=== PATIENT | male | born 1930 | race Caucasian/White ===

== ENCOUNTER 2018-11-28 21:16 | Inpatient (IN) | payer MEDICARE ==
[~2018-11-28] VITALS: Ht 170.2 cm; Wt 82.1 kg
[2018-11-28 21:40] LABS: BASOPHILS ABSOLUTE AUTO 0.06 K/mm3 (0.00-0.23); BASOPHILS PERCENT AUTO 0 % (0-2); EOSINOPHILS ABSOLUTE AUTO 0.01 K/mm3 (0.00-0.68); EOSINOPHILS PERCENT AUTO 0 % (0-6); Hematocrit 40.4 % (37.0-53.0); Hemoglobin 12.9 g/dL (13.5-17.5); IMMATURE GRAN PERCENT AUTO 1 % (0-1); LYMPHOCYTES ABSOLUTE AUTO 2.18 K/mm3 (0.84-5.20); LYMPHOCYTES PERCENT AUTO 11 % (21-46); MONOCYTES ABSOLUTE AUTO 1.04 K/mm3 (0.16-1.47); MONOCYTES PERCENT AUTO 5 % (4-13); Mean Corpuscular HGB 27.5 pg (26.0-34.0); Mean Corpuscular HGB Conc 31.9 g/dL (31.5-36.5); Mean Corpuscular Volume 86 fL (80-100); Mean Platelet Volume 10.2 fL (9.1-12.4); NEUTROPHILS ABSOLUTE AUTO 16.35 K/mm3 (1.96-9.15); NEUTROPHILS PERCENT AUTO 82 % (41-73); Platelet Count 459 K/mm3 (150-400); RDW Standard Deviation 49.8 fL (35.1-46.3); Red Blood Cell Count 4.69 M/mm3 (4.30-5.90); White Blood Cell Count 19.84 K/mm3 (4.00-11.30)
[2018-11-28 21:53] LABS: Albumin, Blood 2.6 g/dL (3.4-5.0); Albumin/Globulin Ratio 0.4 (0.8-1.8); Bilirubin, Total 1.8 mg/dL (0.1-1.0); Bun/Creatinine Ratio 22.9 (12.0-20.0); Calcium, Blood 9.3 mg/dL (8.5-10.1); Creatinine, Blood 1.57 mg/dL (0.60-1.20); Globulin, Blood 5.9 g/dL (2.2-4.0); Potassium, Blood 4.4 mmol/L (3.5-5.5); Total Protein, Blood 8.5 g/dL (6.4-8.2)
[2018-11-28 21:58] LABS: Source, Urine Catheter
[2018-11-28 22:02] LABS: Appearance, Urine Turbid (Clear); Bilirubin, Urine Neg (Neg); Blood, Urine 3+ (Neg); Color, Urine Amber (P-Yellow); Glucose Qualitative, Urine Neg (Neg); Ketones, Urine 1+ (Neg); Leukocyte Esterase, Urine 3+ (Neg); Nitrite, Urine Pos (Neg); Protein, Urine 4+ (Neg); Specific Gravity, Urine 1.015 (1.003-1.022); Urobilinogen, Urine NORM (Normal)
[2018-11-28 22:09] LABS: Amorphous Mod (0-Heavy); Bacteria Many /hpf; Squamous Epithelial Cells Not Seen /hpf (Few); Triple Phosphate Crystals Mod /hpf; White Blood Cells, Urine TNTC /hpf (0-5)
[2018-11-28 22:37] LABS: Magnesium, Blood 2.4 mg/dL (1.6-2.4); Troponin I <0.015 ng/mL (0.000-0.040)
--- NOTE | 2018-11-29 01:30 | NUR ---
PATIENT ARRIVED ON GURNEY WITH EYES CLOSED. PATIENT OPENED EYES WITH PHYSICAL STIMULI. PATIENT WATCHING AND SMILING AT STAFF WHILE WE CLEANED HIM OF INCONTINENCE. PATIENT NONVERBAL AT THIS TIME. BERTIN AT BEDSIDE WITH DAUGHTERS. STAYING THE NIGHT. 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 PATIENT BUSTAMANTE OOZING PUSS, CLEANED. HEAD OF PENIS RED AND SWOLLEN. PATIENT HAS LARGE AREA OF REDNESS AND RASH AREA THAT EXTENDS FROM BUTTOCK TO LOW BACK, PIC TAKEN IN CHART.
[2018-11-29] MEDS ORDERED: LISI5 PO (01:42)
[2018-11-29] MEDS ORDERED: QUET25 PO (01:43)
[2018-11-29] MEDS ORDERED: MELADOX3 MG PO (01:44)
[2018-11-29] MEDS ORDERED: FISH OIL 1,0001 EACH PO (01:47)
[2018-11-29] MEDS ORDERED: TUMS500 MG PO (01:47)
[2018-11-29] MEDS ORDERED: D3-20002000 UNIT PO (01:47)
[2018-11-29] MEDS ORDERED: SERT100 PO (02:33)
--- NOTE | 2018-11-29 04:11 | NUR ---
VERIFED WITH DR. VANN THAT PATIENT IS DNR/DNI AND WHETHER HE WANTED FLAGYL TO BE GIVEN OR NOT. FLAGYL WAS ORDERED IN ER BUT WAS NOT GIVEN. NO FLAGYL TO BE GIVEN AT THIS TIME.
--- NOTE | 2018-11-29 06:09 | NUR ---
PATIENT CONTINUES TO BE NONVERBAL. STATES THAT HE DOES SAY SOME WORDS SOMETIMES. PATIENT SMILING AND WATCHING STAFF WHEN PROVIDING CARE. TURNING PATIENT EVERY TWO HOURS AND PROVIDING BUSTAMANTE CARE. PATIENT CONTINUES TO OOZES YELLOW PUSS FROM BUSTAMANTE. PATIENT TOLERATING FLUIDS SO FAR, DOES HAVE HISTORY OF CHF ACCORDING TO . PATIENT SHOWS NO SIGNS OF PAIN. SLEEPING WELL INBETWEEN CARE.
[2018-11-29 06:45] LABS: BASOPHILS ABSOLUTE AUTO 0.03 K/mm3 (0.00-0.23); BASOPHILS PERCENT AUTO 0 % (0-2); EOSINOPHILS ABSOLUTE AUTO 0.06 K/mm3 (0.00-0.68); EOSINOPHILS PERCENT AUTO 0 % (0-6); Hematocrit 30.3 % (37.0-53.0); Hemoglobin 9.6 g/dL (13.5-17.5); IMMATURE GRAN ABSOLUTE AUTO 0.11 K/mm3 (0.00-0.10); IMMATURE GRAN PERCENT AUTO 1 % (0-1); LYMPHOCYTES ABSOLUTE AUTO 1.99 K/mm3 (0.84-5.20); LYMPHOCYTES PERCENT AUTO 14 % (21-46); MONOCYTES ABSOLUTE AUTO 0.72 K/mm3 (0.16-1.47); MONOCYTES PERCENT AUTO 5 % (4-13); Mean Corpuscular HGB 27.1 pg (26.0-34.0); Mean Corpuscular HGB Conc 31.7 g/dL (31.5-36.5); Mean Corpuscular Volume 86 fL (80-100); Mean Platelet Volume 9.9 fL (9.1-12.4); NEUTROPHILS ABSOLUTE AUTO 10.94 K/mm3 (1.96-9.15); NEUTROPHILS PERCENT AUTO 79 % (41-73); Platelet Count 304 K/mm3 (150-400); RDW Coefficient Variation 15.9 % (11.7-14.2); RDW Standard Deviation 49.5 fL (35.1-46.3); Red Blood Cell Count 3.54 M/mm3 (4.30-5.90); White Blood Cell Count 13.85 K/mm3 (4.00-11.30)
[2018-11-29 07:18] LABS: Albumin, Blood 1.9 g/dL (3.4-5.0); Albumin/Globulin Ratio 0.4 (0.8-1.8); Bilirubin, Total 1.1 mg/dL (0.1-1.0); Bun/Creatinine Ratio 25.4 (12.0-20.0); Calcium, Blood 7.9 mg/dL (8.5-10.1); Creatinine, Blood 1.26 mg/dL (0.60-1.20); Globulin, Blood 4.6 g/dL (2.2-4.0); Potassium, Blood 3.8 mmol/L (3.5-5.5); Total Protein, Blood 6.5 g/dL (6.4-8.2)
--- NOTE | 2018-11-29 07:40 | NUR ---
DR CLAUDIO AT THE BEDSIDE TO ASSESS PT.
--- NOTE | 2018-11-29 08:00 | NUR ---
AM ASSESSMENT: PT IS DROWSY BUT OPENS EYES TO VERBAL STIMULI. PT IS VERY [place] PER AND IS NOT WEARING ANY HEARING AIDS. PT MUMBLING SINGLE WORDS THAT ARE MOSTLY UNINTELLIGLE. PT'S REPORTS PT HAS BEEN DROWSY AND MOSTLY NON-VERBAL LATELY. PT IS FULLY DEPENDENTLY WITH Q2H TURNS TO MAINTAIN SKIN INTEGRITY. LUNGS ARE CLEAR BUT DIMINISHED IN THE BILATERAL BASES. SP02 >90% ON 1L 02 VIA N/C. HR REGULAR, SR-70'S RANGE. NS @ 200ML/HR THROUGH PIV IN THE LT FA. ABD SOFT/ROUND/NO GRIMACE TO PALPATION. BT'S HYPOACTIVE X4 QAUDS. PT WILL REMAIN NPO UNTIL SPEECH EVALUATION IS DONE. -DNR STATUS
--- NOTE | 2018-11-29 11:35 | NUR ---
DR WONG AT THE BEDSIDE FOR SURGICAL CONSULT. DISCUSSED PT'S STATUS WITH . CONTINUING TO AWAIT ABD ULTRASOUND TO BE COMPLETED. WILL DO MEDICAL MANAGEMENT AND CONTINUE ABX PER DR WONG FOR NOW.
--- NOTE | 2018-11-29 16:19 | NUR ---
SHIFT SUMMARY: PT WITH INCREASING MENTATION T/O SHIFT. PT STARTING TO SAYING SINGLE WORDS MORE FREQUENTLY AND WORDS ARE CLEARER/INTELLIGLE. PT ABLE TO MAKE SOME NEEDS KNOWN, HOWEVER, R/T DEMENTIA FAMILY REPORTS HAS DIFFICULTY MAKING ALL CARE NEEDS KNOWN. PT VERY [place] AND DOES NOT APPEAR TO HEAR MOST OF WHAT STAFF SAYS. LUNGS WITH INCREASING COARSENESS HEARD IN THE BILATERAL BASES. SP02- >90% ON 1L 02 VIA N/C. HR REGULAR, SR-70'S RANGE. PT IS MEDICAL STATUS AND WILL TNX WHEN A BED IS AVAILABLE. NEW IV PLACED IN THE RT FA, AFTER PT PULLED OUT HIS FIRST IV. PT ON LEVOQUIN/ZOSYN CONTINUED WHILE URINE CX'S PENDING. PT'S , REPORTS THIS IS THE 3RD UTI SINCE HE HAS HAD HIS CHRONIC INDWELLING BUSTAMANTE PLACED. TURNING Q2H TO MAINTAIN SKIN INTEGRITY. [place]STATIN ORDERED FOR ERYTHEMATOUS RASH PRESENT TO THE RT/LT BUTTOCKS. PT HAS BEEN WHEELCHAIR/BEDRIDDEN SINCE 03/24 PER AND PT'S REPORTS SHE FEELS STRONGLY ABOUT THE PT COMING BACK HOME AND REPORTS SHE FEELS LIKE SHE CAN ADEQUATELY CARE FOR HIM AT HOME ON HER OWN. CHRONIC BUSTAMANTE CATHETHER W/ 500ML OUT THIS SHIFT OF CLOUDY, TAHIR URINE WITH SEDIMENT. PT CONTINUES TO HAVE PUS DRAINING FROM MEATUS, REQUIRING DILIGENT CATHETER CARE. NO BM THIS SHIFT. REMAINS NPO UNTIL SPEECH EVALUATION DONE.
--- NOTE | 2018-11-29 19:26 | NUR ---
REPORTED OFF TO ESTELLE HERNÁNDEZ WHOM WILL ASSUME CARE OF THIS PT.
--- NOTE | 2018-11-29 22:12 | NUR ---
PT SPOUSE CALLED AND WAS UPDATED.
--- NOTE | 2018-11-30 01:31 | NUR ---
PT REFUSING TO WEAR N/C AFTER LAST REPOSITIONING. PT ACTUALLY VERBALIZED IN SENTENCES: "I DON'T WANT THAT" (TO N/C BEING PLACED BACK ONTO NOSE); "NO, I'M NOT COLD" (TO QUESTION); AND "WHERE ARE MY TEETH" (PT SHOWN THAT HIS TEETH WERE IN DENTURE CUP). VSS. CALL LIGHT WITHIN REACH. PT CURRENTLY SLEEPING.
--- NOTE | 2018-11-30 03:26 | NUR ---
PT NOTICED FROM CHAPMAN TO BE PULLING AT CATHETER. UPON CHECKING ON PT, PT WITH ANOTHER BM, THIS ONE EXTRA LARGE-LARGE BROWN PASTY STOOL WTIH BROWN LIQUID STOOL. PT PARTICIPATED IN HELPING TURN SELF. CALAMINE LOTION APPLIED TO REDDENED AREA WHICH HAS REDUCED COMPARED TO PICTURES.
[2018-11-30 08:02] LABS: Hemoglobin 9.7 g/dL (13.5-17.5); Mean Corpuscular HGB 27.3 pg (26.0-34.0); Mean Corpuscular HGB Conc 31.3 g/dL (31.5-36.5); Mean Corpuscular Volume 87 fL (80-100); Mean Platelet Volume 9.7 fL (9.1-12.4); Platelet Count 329 K/mm3 (150-400); RDW Coefficient Variation 15.9 % (11.7-14.2); Red Blood Cell Count 3.55 M/mm3 (4.30-5.90); White Blood Cell Count 12.04 K/mm3 (4.00-11.30)
[2018-11-30 08:36] LABS: Alanine Aminotransfer (ALT/SGP 77 U/L (12-78); Albumin, Blood 1.9 g/dL (3.4-5.0); Albumin/Globulin Ratio 0.4 (0.8-1.8); Alk Phos 185 U/L (50-136); Anion Gap 7 mmol/L (6-16); Aspartate Aminotrans (AST/SGOT 26 U/L (12-37); Bilirubin, Total 0.9 mg/dL (0.1-1.0); Blood Urea Nitrogen 28 mg/dL (8-24); Bun/Creatinine Ratio 23.1 (12.0-20.0); CO2, Blood 25 mmol/L (21-32); Calcium, Blood 8.2 mg/dL (8.5-10.1); Chloride, Blood 115 mmol/L (98-108); Creatinine, Blood 1.21 mg/dL (0.60-1.20); Globulin, Blood 4.9 g/dL (2.2-4.0); Glomerular Filtration Rate >60 (60-); Glucose, Blood 72 mg/dL (70-99); Potassium, Blood 3.6 mmol/L (3.5-5.5); Sodium, Blood 147 mmol/L (136-145); Total Protein, Blood 6.8 g/dL (6.4-8.2)
--- NOTE | 2018-11-30 11:13 | NUR ---
ASSUMED CARE FROM EVIE RN AT THIS TIME. PT APPEARS COMFORTABLE IN BED. NO S/S DISTRESS NOTED. FAMILY MEMBER NAMED LATA AT BEDSIDE AND QUESTIONS R/T TO CARE AND TREATMENT PLAN ANSWERED. VS TAKEN. PT PLEASANTLY CONFUSED AND VERY HARD OF HEARING. SIDE RAILS UP X3 AND BED ALARM IN PLACE FOR SAFETY. FREQUENTLY ROUNDING.
--- NOTE | 2018-11-30 16:14 | NUR ---
SHIFT SUMMARY SINCE ASSUMING CARE OF PT, PT REMAINS PLEASANTLY CONFUSED. PT APPEARS TO BE COMFORTABLE AT REST AND NO S/S DISTRESS NOTED. REPOSITIONING Q2H WITH PILLOWS. CHANGING ATTENDS PRN PT INCONTINENT OF STOOL. BARRIER CREAM BEING APPLIED TO COCCYX AND RAIMUNDO AREA. BUSTAMANTE PATENT AND DRAINING DARK YELLOW URINE. PT ON RA AND LUNGS CLEAR T/O BUT DIMINISHED IN THE BASES. PT HAS BEEN PULLING OUT IVS AND IS CURRENTLY WAITING FOR ICU NURSE TO ATTEMPT ACCESS. PT NEEDS 100% FEEDING ASSISTANCE AND FOLLOWING DIET GUIDELINES PER SPEECH THERAPY. FAMILY AT BEDSIDE FOR SUPPORT. CALL LIGHT WITHIN REACH.
[2018-12-01 04:33] LABS: Hematocrit 31.2 % (37.0-53.0); Hemoglobin 9.7 g/dL (13.5-17.5); Mean Corpuscular HGB 27.5 pg (26.0-34.0); Mean Corpuscular HGB Conc 31.1 g/dL (31.5-36.5); Mean Corpuscular Volume 88 fL (80-100); Mean Platelet Volume 9.6 fL (9.1-12.4); Platelet Count 329 K/mm3 (150-400); RDW Coefficient Variation 15.9 % (11.7-14.2); RDW Standard Deviation 51.9 fL (35.1-46.3); Red Blood Cell Count 3.53 M/mm3 (4.30-5.90); White Blood Cell Count 11.07 K/mm3 (4.00-11.30)
[2018-12-01 04:51] LABS: Anion Gap 6 mmol/L (6-16); Blood Urea Nitrogen 24 mg/dL (8-24); Bun/Creatinine Ratio 21.8 (12.0-20.0); CO2, Blood 24 mmol/L (21-32); Calcium, Blood 8.1 mg/dL (8.5-10.1); Chloride, Blood 115 mmol/L (98-108); Glomerular Filtration Rate >60 (60-); Glucose, Blood 112 mg/dL (70-99); Potassium, Blood 3.2 mmol/L (3.5-5.5); Sodium, Blood 145 mmol/L (136-145)
--- NOTE | 2018-12-01 06:47 | NUR ---
SHIFT SUMMARY PT ALERT, [place], ORIENTED TO SELF AND PRESENT AT BEDSIDE UPON CARE ASSUMPTION AT BEGINNING OF SHIFT. PT MEDICAL NO TELE STATUS. VSS. CHRONIC BUSTAMANTE CATH PATENT AND DRAINING DARK YELLOW URINE. HEAD OF PENIS IF SPLIT FROM CHRONIC BUSTAMANTE CATH. RASH PRESENT ON BILAT BUTTOCKS. Q2H REPOSITIONING BY 2 STAFF MEMBERS. BED ALARM ON. WILL CONTINUE TO MONITOR AND PROVIDE CARE UNTIL REPORT OFF TO DAY SHIFT RN.
--- NOTE | 2018-12-01 17:52 | NUR ---
SHIFT SUMMARY PT IS A TRANSFER FROM PCU THIS EVENING. PT IS ALERT, BUT PLEASANTLY CONFUSED. PT'S SPOUSE AT BEDSIDE. CALL LIGHT IN REACH AND BED ALARM ON FOR SAFETY. PT HAS NO COMPLAINTS AT THIS TIME. SITTING COMFORTABLY IN BED, EATING DINNER WITH ASSIST OF FEEDING. WILL CONTINUE TO MONITOR AND REPORT TO ONCOMING RN.
--- NOTE | 2018-12-01 22:29 | NUR ---
PT has advanced dementia, Molly said PT takes Melatonin 3 mg at HS. Lucita phillips and mellatonin rx. Aspiration precaitions nectar thick liq given, suction set up. Entire perianal area to low back with red raised rash. EX ileana loose brown stool incontience, skin care with karacleanse then antifungal cream with calmaseptic and barrier cream applied. Ramsay care completed. Pt able to communicate but has advanced dementia, thinks hes in [place]. [employer] , is caregiver, lives in [place].
--- NOTE | 2018-12-02 02:25 | NUR ---
88 year old Male [employer] disabled and baseline chair bound has chronic deleon and fecal incontinence. PT has UTI on antibiotics to treat. 2 exlarge liquid brown stools this shift. Took less than 300 ml nectar thick liquids via spoon total feeder. Some nonprod cough after oral intake. supportive provided updated phone and mailing address. SW referral for need for increased assistance with cares for this patient.
[2018-12-02 05:16] LABS: BASOPHILS ABSOLUTE AUTO 0.07 K/mm3 (0.00-0.23); BASOPHILS PERCENT AUTO 1 % (0-2); EOSINOPHILS ABSOLUTE AUTO 0.65 K/mm3 (0.00-0.68); EOSINOPHILS PERCENT AUTO 6 % (0-6); Hematocrit 30.1 % (37.0-53.0); Hemoglobin 9.5 g/dL (13.5-17.5); IMMATURE GRAN ABSOLUTE AUTO 0.17 K/mm3 (0.00-0.10); IMMATURE GRAN PERCENT AUTO 2 % (0-1); LYMPHOCYTES ABSOLUTE AUTO 2.43 K/mm3 (0.84-5.20); LYMPHOCYTES PERCENT AUTO 22 % (21-46); MONOCYTES ABSOLUTE AUTO 0.59 K/mm3 (0.16-1.47); MONOCYTES PERCENT AUTO 5 % (4-13); Mean Corpuscular HGB 27.9 pg (26.0-34.0); Mean Corpuscular HGB Conc 31.6 g/dL (31.5-36.5); Mean Corpuscular Volume 88 fL (80-100); Mean Platelet Volume 9.6 fL (9.1-12.4); NEUTROPHILS ABSOLUTE AUTO 7.07 K/mm3 (1.96-9.15); NEUTROPHILS PERCENT AUTO 65 % (41-73); Platelet Count 323 K/mm3 (150-400); RDW Standard Deviation 51.9 fL (35.1-46.3); Red Blood Cell Count 3.41 M/mm3 (4.30-5.90); White Blood Cell Count 10.98 K/mm3 (4.00-11.30)
[2018-12-02 05:51] LABS: Alanine Aminotransfer (ALT/SGP 37 U/L (12-78); Albumin, Blood 1.9 g/dL (3.4-5.0); Albumin/Globulin Ratio 0.4 (0.8-1.8); Alk Phos 134 U/L (50-136); Anion Gap 7 mmol/L (6-16); Aspartate Aminotrans (AST/SGOT 14 U/L (12-37); Bilirubin, Total 0.4 mg/dL (0.1-1.0); Blood Urea Nitrogen 20 mg/dL (8-24); Bun/Creatinine Ratio 22.3 (12.0-20.0); CO2, Blood 25 mmol/L (21-32); Chloride, Blood 116 mmol/L (98-108); Globulin, Blood 4.7 g/dL (2.2-4.0); Glomerular Filtration Rate >60 (60-); Glucose, Blood 116 mg/dL (70-99); Potassium, Blood 3.5 mmol/L (3.5-5.5); Sodium, Blood 148 mmol/L (136-145); Total Protein, Blood 6.6 g/dL (6.4-8.2)
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
[2018-12-03 05:15] LABS: BASOPHILS ABSOLUTE AUTO 0.09 K/mm3 (0.00-0.23); BASOPHILS PERCENT AUTO 1 % (0-2); EOSINOPHILS ABSOLUTE AUTO 0.81 K/mm3 (0.00-0.68); EOSINOPHILS PERCENT AUTO 7 % (0-6); Hematocrit 29.4 % (37.0-53.0); Hemoglobin 9.1 g/dL (13.5-17.5); IMMATURE GRAN ABSOLUTE AUTO 0.29 K/mm3 (0.00-0.10); IMMATURE GRAN PERCENT AUTO 2 % (0-1); LYMPHOCYTES ABSOLUTE AUTO 2.39 K/mm3 (0.84-5.20); LYMPHOCYTES PERCENT AUTO 20 % (21-46); MONOCYTES ABSOLUTE AUTO 0.57 K/mm3 (0.16-1.47); MONOCYTES PERCENT AUTO 5 % (4-13); Mean Corpuscular HGB 27.6 pg (26.0-34.0); Mean Corpuscular Volume 89 fL (80-100); Mean Platelet Volume 9.6 fL (9.1-12.4); NEUTROPHILS ABSOLUTE AUTO 7.79 K/mm3 (1.96-9.15); NEUTROPHILS PERCENT AUTO 65 % (41-73); Platelet Count 335 K/mm3 (150-400); RDW Coefficient Variation 15.9 % (11.7-14.2); RDW Standard Deviation 52.1 fL (35.1-46.3); White Blood Cell Count 11.94 K/mm3 (4.00-11.30)
[2018-12-03 05:35] LABS: Anion Gap 5 mmol/L (6-16); Blood Urea Nitrogen 16 mg/dL (8-24); Bun/Creatinine Ratio 19.4 (12.0-20.0); CO2, Blood 28 mmol/L (21-32); Calcium, Blood 7.7 mg/dL (8.5-10.1); Chloride, Blood 113 mmol/L (98-108); Creatinine, Blood 0.83 mg/dL (0.60-1.20); Glomerular Filtration Rate >60 (60-); Glucose, Blood 116 mg/dL (70-99); Magnesium, Blood 1.9 mg/dL (1.6-2.4); Potassium, Blood 3.5 mmol/L (3.5-5.5); Sodium, Blood 146 mmol/L (136-145)
--- NOTE | 2018-12-03 07:13 | NUR ---
[place], call light in reach, orintated to self, asphasic, saline locked, cath and iv kept hidden from him due to tendency to pull on things, bsr shared with staff and pt
[2018-12-03] MEDS ORDERED: Anti-Diarrheal2 MG PO (11:39)
[2018-12-03] MEDS ORDERED: Florastor250 MG PO (11:40)
[2018-12-03] MEDS ORDERED: NYSTRITC TOP (11:40)
[2018-12-03] MEDS ORDERED: LEVFLO500 PO (11:41)
[2018-12-03] MEDS ORDERED: CEFP200 PO (11:43)
== END 2018-12-03 16:42 | disposition home health service (06) | DRG 871 ==
LOC: ER 21:16 → PCU 11-29 00:10 → MEDS 12-01 16:22 → EDPENDDISDT 12-03 10:30 → EDPENDDISTM 12-03 10:30 → ENPENDDIS 12-03 10:30 → MEDS 12-03 16:42
PROVIDERS: Emergency Medicine; Internal Medicine; ADMIT Hospitalist
DX: A41.9 Sepsis, unspecified organism (principal); G92 Toxic encephalopathy; F02.81 Dementia in other diseases classified elsewhere, unspecified severity, with behavioral disturbance; K81.0 Acute cholecystitis; N17.9 Acute kidney failure, unspecified; N39.0 Urinary tract infection, site not specified; K52.1 Toxic gastroenteritis and colitis; G30.9 Alzheimer's disease, unspecified; Z96.651 Presence of right artificial knee joint; Z87.891 Personal history of nicotine dependence; Z74.01 Bed confinement status; Z66 Do not resuscitate; R65.20 Severe sepsis without septic shock; H91.90 Unspecified hearing loss, unspecified ear; T36.0X5A Adverse effect of penicillins, initial encounter; Y92.239 Unspecified place in hospital as the place of occurrence of the external cause
CPT/HCPCS: 36415; 51702; 71045; 74176; 76705; 80048; 80053; 81001; 83605; 83735; 83880; 84145; 84484; 85025; 85027; 87040; 87077; 87086; 87186; 92526; 92610; 93005; 93010; 96361-59; 96365-59; 96367-59; 96375-59; 99285-25; J0290; J0696; J1644; J1956; J2405; J2543; J7030; J7050

== ENCOUNTER 2019-04-12 15:09 | Emergency (ER) | payer OTHER, MEDICARE ==
[~2019-04-12] VITALS: Ht 175.3 cm; Wt 81.7 kg
[~2019-04-12 15:09] MED LIST: Anti-Diarrheal2 MG PO; CEFP200 PO; D3-20002000 UNIT PO; FISH OIL 1,0001 EACH PO; Florastor250 MG PO; GUAI200 PO; Keflex500 MG PO; LEVFLO500 PO; LISI5 PO; MELADOX3 MG PO; NYSTRITC TOP; OMEPRAZOLE20 MG PO; QUET25 PO; SERT100 PO; SERT20L; TUMS500 MG PO
[2019-04-12] MEDS ORDERED: CEPH500 PO (15:38)
== END 2019-04-12 18:27 | disposition home or self-care (01) ==
LOC: ER 15:09
DX: L03.113 Cellulitis of right upper limb (principal); Z23 Encounter for immunization; Z87.891 Personal history of nicotine dependence; Z79.899 Other long term (current) drug therapy
CPT/HCPCS: 90686; 99283-25; A9270-GY; G0008

== ENCOUNTER → 2019-09-13 | Outpatient (CLI) | payer SELFPAY ==
[~2019-09-13] MED LIST changes: +CEPH500 PO
[2019-09-13 16:17] LABS: Bilirubin, Urine Neg (Neg); Blood, Urine 5+ (Neg); Glucose Qualitative, Urine Neg (Neg); Ketones, Urine Neg (Neg); Leukocyte Esterase, Urine 3+ (Neg); Nitrite, Urine Pos (Neg); Protein, Urine 3+ (Neg); Specific Gravity, Urine 1.015 (1.003-1.022); Urobilinogen, Urine NORM (Normal); pH, Urine 6.5 (5.0-8.0)
[2019-09-13 16:25] LABS: Appearance, Urine Cloudy (Clear); Color, Urine Yellow (P-Yellow)
[2019-09-13 16:26] LABS: Bacteria Many /hpf; Mucus Light (0-Heavy); Squamous Epithelial Cells Few /hpf (Few); White Blood Cells, Urine TNTC /hpf (0-5)
== END ==
LOC: LAB SHORT 13:15 → LAB 13:15
PROVIDERS: Family Medicine
DX: Z09 Encounter for follow-up examination after completed treatment for conditions other than malignant neoplasm (principal); Z87.440 Personal history of urinary (tract) infections
CPT/HCPCS: 81001; 87077; 87086; 87186

== ENCOUNTER 2019-10-20 15:14 | Emergency (ER) | payer OTHER ==
[~2019-10-20] VITALS: Ht 170.2 cm; Wt 92.5 kg
[2019-10-20 16:12] LABS: BASOPHILS ABSOLUTE AUTO 0.07 K/mm3 (0.00-0.23); BASOPHILS PERCENT AUTO 0 % (0-2); EOSINOPHILS ABSOLUTE AUTO 0.03 K/mm3 (0.00-0.68); EOSINOPHILS PERCENT AUTO 0 % (0-6); Hematocrit 37.2 % (37.0-53.0); Hemoglobin 11.6 g/dL (13.5-17.5); IMMATURE GRAN ABSOLUTE AUTO 0.14 K/mm3 (0.00-0.10); IMMATURE GRAN PERCENT AUTO 1 % (0-1); LYMPHOCYTES PERCENT AUTO 9 % (21-46); MONOCYTES ABSOLUTE AUTO 1.18 K/mm3 (0.16-1.47); MONOCYTES PERCENT AUTO 7 % (4-13); Mean Corpuscular HGB 27.4 pg (26.0-34.0); Mean Corpuscular HGB Conc 31.2 g/dL (31.5-36.5); Mean Corpuscular Volume 88 fL (80-100); NEUTROPHILS ABSOLUTE AUTO 14.13 K/mm3 (1.96-9.15); NEUTROPHILS PERCENT AUTO 83 % (41-73); Platelet Count 259 K/mm3 (150-400); RDW Coefficient Variation 15.2 % (11.7-14.2); RDW Standard Deviation 48.6 fL (35.1-46.3); Red Blood Cell Count 4.24 M/mm3 (4.30-5.90); White Blood Cell Count 17.05 K/mm3 (4.00-11.30)
[2019-10-20 16:24] LABS: Albumin, Blood 2.3 g/dL (3.4-5.0); Albumin/Globulin Ratio 0.5 (0.8-1.8); Bilirubin, Total 0.7 mg/dL (0.1-1.0); Bun/Creatinine Ratio 23.6 (12.0-20.0); Calcium, Blood 8.2 mg/dL (8.5-10.1); Creatinine, Blood 1.48 mg/dL (0.60-1.20); Globulin, Blood 4.3 g/dL (2.2-4.0); Potassium, Blood 4.5 mmol/L (3.5-5.5); Total Protein, Blood 6.6 g/dL (6.4-8.2)
[2019-10-20] MEDS ORDERED: CEFP200 PO (17:08)
== END 2019-10-20 20:08 | disposition home or self-care (01) ==
LOC: ER 15:14
PROVIDERS: Physician Assistant
DX: N39.0 Urinary tract infection, site not specified (principal); Z79.899 Other long term (current) drug therapy; I10 Essential (primary) hypertension; F03.90 Unspecified dementia, unspecified severity, without behavioral disturbance, psychotic disturbance, mood disturbance, and anxiety; K21.9 Gastro-esophageal reflux disease without esophagitis; Z87.891 Personal history of nicotine dependence
CPT/HCPCS: 74176; 80053; 85025; 96365; 99285-25; J0696; J7030

== ENCOUNTER 2019-10-25 13:33 | Emergency (ER) | payer OTHER ==
[~2019-10-25] VITALS: Ht 177.8 cm; Wt 95.2 kg
== END 2019-10-25 15:51 | disposition home or self-care (01) ==
LOC: ER 13:33
DX: T83.098A Other mechanical complication of other urinary catheter, initial encounter (principal); Z87.440 Personal history of urinary (tract) infections; I10 Essential (primary) hypertension; K21.9 Gastro-esophageal reflux disease without esophagitis; N40.0 Benign prostatic hyperplasia without lower urinary tract symptoms; Z79.899 Other long term (current) drug therapy; Z87.891 Personal history of nicotine dependence
CPT/HCPCS: 51798; 99282-25

== ENCOUNTER 2019-12-15 00:59 | Emergency (ER) | payer OTHER ==
[~2019-12-15] VITALS: Ht 165.1 cm; Wt 97.5 kg
== END 2019-12-15 14:41 | disposition home or self-care (01) ==
LOC: ER 00:59
DX: Z00.00 Encounter for general adult medical examination without abnormal findings (principal); F03.90 Unspecified dementia, unspecified severity, without behavioral disturbance, psychotic disturbance, mood disturbance, and anxiety; Z74.01 Bed confinement status; Z96.651 Presence of right artificial knee joint; I10 Essential (primary) hypertension; Z20.828 Contact with and (suspected) exposure to other viral communicable diseases
CPT/HCPCS: 99283; U0002